=== PATIENT | female | born 1970 | race Caucasian/White ===

== ENCOUNTER → 2020-09-10 13:32 | Outpatient (BNVA) | payer OTHER, SELFPAY | PROVIDERS: Visit Provider Surgery ==

== ENCOUNTER 2020-11-30 16:31 | Outpatient (REF) | payer OTHER, SELFPAY ==
--- NOTE | ~2020-11-30 | MR_ITS ---
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 Lifetime risk 23.4%. COMPARISON: Correlation to mammogram of 03/10/2020 TECHNIQUE: Imaging was performed with a dedicated breast coil. Prior to the administration of contrast, bilateral axial T1 and bilateral axial T2 weighted sequences were obtained. After the uneventful administration of?9 mL of Gadavist, dynamic contrast-enhanced VIBRANT series through the breasts in the axial plane were performed. Subtracted images were performed and reviewed. A delayed sagittal sequence through both breasts was acquired. Additionally, CAD post-processing, including maximum intensity projections, 3-D reconstructions and kinetic analysis, were performed an independent workstation and reviewed by the interpreting radiologist is a portion of this exam. FINDINGS: There is scattered background density. There is mild background enhancement. LEFT BREAST: There are scattered foci of enhancement demonstrating subthreshold-type kinetics. There is a 0.6 cm enhancing mass in the 9 o'clock position, 4.3 cm from the nipple, demonstrating progressive and plateau-type kinetics. This finding is suspicious. (Axial subtracted image 70/126). There are no other areas of mass or non-mass enhancement suspicious of malignancy. There are 3 susceptibility artifacts in the 6 o'clock position of the breast from prior benign biopsies. There are no additional findings on T2-weighted imaging or kinetic curve analysis. RIGHT BREAST: There is non-mass enhancement in the 10 o'clock position of the breast, 7.8 cm from the nipple, measuring 1.1 cm in AP length. This demonstrates progressive and plateau-type kinetics and is considered suspicious. (Axial subtracted image 64/126). There are a few other scattered foci of enhancement demonstrating subthreshold-type kinetics. There is a focal area of enhancement in the skin along the inferior medial surface of the breast 6.2 cm from the nipple. This may represent an inflammatory skin process. (Axial subtracted image 99/126). There are no other areas of mass or non-mass enhancement suspicious of malignancy. There are no additional findings on T2-weighted imaging or kinetic curve analysis. There is no suspicious internal mammary chain. The right axillary lymph nodes are prominent. One in particular has a thickened cortex (axial subtracted image 32/126). Limited views of the chest and abdomen are unremarkable. MR/MR breast BI wo/w con IMPRESSION: 1. Left breast with 0.5 cm enhancing mass 9 o'clock position which is suspicious. 2. Right breast with non-mass enhancement 10 o'clock position which is suspicious. 3. Right breast with focal enhancement in the skin along the inferomedial surface. 4. Right axillary adenopathy. ASSESSMENT: LEFT BREAST: BI-RADS 4: Suspicious. RIGHT BREAST: BI-RADS 4: Suspicious. RECOMMENDATIONS: 1. MRI-guided biopsies for the left breast at 9 o'clock and right breast at 10 o'clock. These may have to be performed at 2 separate appointments due to the location of the lesions. 2. Clinical followup for the right breast skin lesion. 3. Focused ultrasound for the right breast adenopathy. It should be determined whether this is related to a recent COVID vaccination. If not, then biopsy should be considered. The findings were discussed with Charles JOHNSTON for Dr. Christine at 1:00 PM on 12/03/2020
== END 2020-11-30 16:32 | disposition home or self-care (01) ==
LOC: HO.MRI 16:31
PROVIDERS: Visit Provider Surgery
DX: R92.2 Inconclusive mammogram (principal); Z98.890 Other specified postprocedural states; Z80.3 Family history of malignant neoplasm of breast
CPT/HCPCS: 77049; A9585

== ENCOUNTER 2020-12-17 07:57 | Outpatient (REF) | payer OTHER, SELFPAY ==
--- NOTE | ~2020-12-17 | US_ITS ---
EXAMINATION: US DIAGNOSTIC ULTRASOUND BREAST, RIGHT CLINICAL INFORMATION: 50-year-old with high risk screening MRI showing mildly prominent right axillary nodes. Prior history right breast atypical ductal hyperplasia and intraductal papilloma. Family history breast cancer in mother. Patient has appointment for MR guided biopsy next week for an 11 mm non-mass enhancement right breast. COMPARISON: MRI breasts 11/30/2020, 05/19/2017, mammography 03/10/2020, 03/06/2019, 02/14/2018, 03/31/2017, 03/07/2016. TECHNIQUE: Ultrasound is targeted to the posterior upper outer right breast and right axilla. Grayscale imaging and color Doppler are performed without and with harmonics. FINDINGS: There are at least 4 right axillary nodes visualized, all with normal patricia architecture with abundant central fatty hilus and normal patricia color flow. The parenchymal cortex for each node measures 2-3 mm with no cystic changes or focal thickening or nodular contour. The nodes appear similar to prior breast imaging exams. No focal suspicious node to targeted for sampling. Results are discussed with the patient at time of visit. She has MR guided right breast biopsy appointment for early next week. Results are called to office (VICKIE Soto) for Dr. Christine on 12/17/2020. US/US breast RT limited IMPRESSION: No focal lymphadenopathy right axilla. No focal abnormality to target for ultrasound-guided biopsy. ASSESSMENT: BI-RADS 3: Probably Benign RECOMMENDATION: Continue with plan for right breast MR guided biopsy. This patient's information was entered into a reminder system with a target due date for their next mammogram.
== END 2020-12-17 07:58 | disposition home or self-care (01) ==
LOC: HO.MAMMO 07:57
PROVIDERS: Visit Provider Surgery
DX: R92.8 Other abnormal and inconclusive findings on diagnostic imaging of breast (principal); Z80.3 Family history of malignant neoplasm of breast
CPT/HCPCS: 76642

== ENCOUNTER 2020-12-22 07:28 | Outpatient (REF) | payer OTHER, SELFPAY ==
--- NOTE | ~2020-12-22 | MM_ITS ---
EXAMINATION: MR GUIDED VACUUM-ASSISTED CORE BIOPSY BREAST, RIGHT MM DIGITAL MAMMOGRAPHY POST BIOPSY, RIGHT CLINICAL INFORMATION: None mass enhancement 10:00 right breast on recent high risk screening breast MRI. Family history breast cancer, mother. Personal history right apex typical glandular formation 2017 and contralateral left intraductal papilloma 2017. TC score 23%. COMPARISON: MRI breasts 11/30/2020, digital breast tomosynthesis 03/10/2020, targeted right breast/axillary ultrasound 12/17/2020. TECHNIQUE/PROCEDURE: Informed consent was obtained from the patient after discussion of the benefits, risks, and alternatives to biopsy today. Patient appeared to understand. Gave opportunity for questions. Patient signed consent form. Biopsy is performed under MRI guidance using breast surface coil. Imaging is performed without and with use of 9 mL Gadavist gadolinium contrast. [employer] introducer localization system is used with grid. LESION: Non mass enhancement right upper outer quadrant. LOCAL ANESTHESIA: 6 mL 1% lidocaine; 10 mL 1% lidocaine with epinephrine. NEEDLE: [place]ov[place] 9-gauge vacuum assisted core biopsy device. APPROACH: Lateral medial. CORES: 12. CLIP: TriMark cylinder shaped. POSTPROCEDURE UNILATERAL DIGITAL MAMMOGRAM: Mammography is performed using digital mammography in CC and ML views. There are scattered areas of fibroglandular density (ACR BI-RADS breast composition Category b). The MR clip marker is in position. No gross hematoma. There are also 2 adjacent markers (open coil and butterfly shapes) in the upper outer quadrant from prior procedures. The patient tolerated the procedure well. No immediate complications. Home instructions reviewed with the patient. Final pathology results are pending. MM/MM diagnostic mammo unilat RT IMPRESSION: 1. Status post MRI guided vacuum-assisted core biopsy right breast with clip placement. 2. Final pathology results pending. An addendum report will be issued.
[2020-12-22] MEDS: Lidocaine HCl 1 % MPF 5 ML VIAL SUBCUT ×2 (09:25→09:26)
== END 2020-12-22 07:29 | disposition home or self-care (01) ==
LOC: HO.MRI 07:28
PROVIDERS: Visit Provider Surgery
DX: R92.8 Other abnormal and inconclusive findings on diagnostic imaging of breast (principal); Z80.3 Family history of malignant neoplasm of breast
CPT/HCPCS: 19085; 77065; 88305; 88360; A9585

== ENCOUNTER → 2021-01-14 15:59 | Outpatient (BNVA) | payer OTHER, SELFPAY | PROVIDERS: PCP Family Medicine; Visit Provider Surgery ==

== ENCOUNTER 2021-02-05 09:09 | Day surgery (SDC) | payer OTHER, SELFPAY ==
[2021-02-01 12:37] VITALS: BMI 35.9
--- NOTE | 2021-02-04 09:57 | HO.ANESPROP2 ---
Documented by User: Calli Israel 02/04/21 09:58 HPI - Anesthesia Eval Consult details Narrative: 50yo Right Breast Biopsy Needle Localization, Breast Lumpectomy PMFSH Active Problems Active Problems: All Active Problems (Updated 01/14/21 @ 16:24 by Berhane Christine MD) Abnormal MRI, breast (Acute) Flat epithelial atypia of right breast (Acute) Family history of breast cancer in first degree relative (Acute) Atypical ductal hyperplasia of breast (Acute) Past Medical History Medical History Atypical ductal hyperplasia of breast Family history of breast cancer in first degree relative Flat epithelial atypia of right breast Surgical History Surgical History History of lumpectomy of left breast Hx of dilation and curettage Social History Social History Patient Tobacco Use Status: Former Tobacco user Use of substances other than those prescribed or required for medical reasons: No Have you been hit, kicked, punched, or otherwise hurt by someone within the past year? If so, by whom?: No Are you DNR?: No Advance Directives Information Provided: No Meds Allergies Allergy/AdvReac Type Severity Reaction Status Date / Time Sulfa (Sulfonamide Allergy Unknown HIVES/DIFFICULTY Verified 01/14/21 16:04 Antibiotics) BREATHING Home Medications Medication Instructions Recorded Confirmed Last Taken Type No Known Home Meds 09/10/20 02/01/21 Unknown History Exam Exam Date and Time: February 04, 2021 0957 Height,Weight and Vital Signs: Height 5 ft 5 in Weight 97.9 kg Assessment and Plan Assessment Anesthesia Assessment: Chart Reviewed Documented by User: Ellen Fregoso 02/05/21 12:27 PMFSH Past Medical History Medical History Atypical ductal hyperplasia of breast Family history of breast cancer in first degree relative Flat epithelial atypia of right breast Surgical History Surgical History History of lumpectomy of left breast Hx of dilation and curettage Social History Social History Patient Tobacco Use Status: Former Tobacco user Use of substances other than those prescribed or required for medical reasons: No Have you been hit, kicked, punched, or otherwise hurt by someone within the past year? If so, by whom?: No Are you DNR?: No Advance Directives Information Provided: No Meds Allergies Allergy/AdvReac Type Severity Reaction Status Date / Time Sulfa (Sulfonamide Allergy Unknown HIVES/DIFFICULTY Verified 01/14/21 16:04 Antibiotics) BREATHING Home Medications Medication Instructions Recorded Confirmed Last Taken Type No Known Home Meds 09/10/20 02/01/21 Unknown History Exam Airway Mallampati Class: I TM Dist: >3cm Neck ROM: Full Loose/Missing/Broken Teeth: No Heart: RRR Lungs: CTA Assessment and Plan Assessment Anesthesia Assessment: Anesthesia Plan Discussed and Chart Reviewed Final Anesthetic Review NPO: Yes ASA Class: II Final Preanesthetic Review: Meds/Allgs Chart Reviewed, Consent Obtained/Reviewed and Anes Risks/Benef Reviewed Patient Risk: Low Procedure Risk: Low Anesthetic Plan Anesthetic Plan: GA Disposition: Standard PACU
[2021-02-05] VITALS (7 sets, daily range): BP systolic 118–130; BP diastolic 71–88; PULSE 61–75; RESP 14–18; TEMP 36.1–36.8; O2SAT 97–100
--- NOTE | ~2021-02-05 | MM_ITS ---
EXAMINATION: MM MAMMOGRAM GUIDED NEEDLE LOCALIZATION BREAST, RIGHT MM NEEDLE LOCALIZATION SPECIMEN FROM THE RIGHT BREAST CLINICAL INFORMATION: Atypical epithelial proliferation COMPARISON: December 22, 2020 and studies dating back to June 20, 2017 TECHNIQUE NEEDLE LOC: Proper informed consent is obtained from the patient after discussion of the procedure, potential risks and complications, and alternatives including declining the procedure today. Patient was given an opportunity for questions. The patient appeared to understand. The patient consented to the procedure and signed the consent form. GUIDANCE: Digital mammography. APPROACH: Lateral Medial. TARGET: MRI clip. ANESTHESIA: lidocaine 1%: 4 mL. LOCALIZATION MARKER: [employer]. A 7 cm long needle The skin is prepped and local anesthesia administered. The needle is positioned and position assessed with mammography. The wire is hooked into position. [place] needle protector placed. The patient tolerated the procedure well and had no immediate complication. TECHNIQUE SPECIMEN RADIOGRAPH: Imaging of the excised specimen is performed using digital mammography in 1 view. FINDINGS SPECIMEN RADIOGRAPH: The specimen shows the needle and hookwire are delivered intact. The targeted biopsy clip as well as 2 adjacent previously placed clips are present.. Results were called to Dr. Berhane Christine in the operating room at the time of imaging. MM/MM needle loc RT IMPRESSION: 1. Status post right breast needle localization with wire hooked into position. 2. Post operative specimen radiograph obtained.
[2021-02-05 09:29] LABS: UPreg QC Valid YES; Urine Pregnancy NEGATIVE (NEGATIVE)
[2021-02-05] MEDS: Lactated Ringers 1,000 ML 100 ML IVCONT (10:08)
--- NOTE | 2021-02-05 10:22 | MHC.SHP ---
Pre-Procedural Eval Section A Date of Service: 02/05/21 Section B Chief Complaint: Flat epithelial atypia of right breast Allergies: Allergies Allergy/AdvReac Type Severity Reaction Status Date / Time Sulfa (Sulfonamide Allergy Unknown HIVES/DIFFICULTY Verified 01/14/21 16:04 Antibiotics) BREATHING Plan I have reviewed the history and physical and performed a pertinent physical examination on my patient. No changes have occurred unless specified.
--- NOTE | 2021-02-05 12:26 | P.OP_ITS ---
Operative Note Operative Note Date of Service: 02/05/21 Narrative: Preop diagnosis: Atypical epithelial proliferation, right breast Postop diagnosis: The same Procedure: lumpectomy, right breast with needle localization Surgeon: Berhane Christine MD Enrollment Management Manager: none The patient is a 50 year female who had undergone ultrasound biopsy because of an abnormal mammogram of the right breast. This turned out to be and atypical epithelial proliferation with borderline DCIS features. She was therefore recommended to undergo lumpectomy. The technique of right breast lumpectomy with needle localization. She was aware of the risks, benefits, and alternatives. She underwent needle localization at the mammogram suite. I had reviewed her needle localization imaging with the radiologist, Dr. Branham .She was brought to the operating room and placed supine the table under general anesthesia via laryngeal mask airway. The right breast was prepped and draped in the usual sterile fashion. A surgical time-out was done. The patient received cefazolin 2 g IV preoperatively. The needle was noted to be entering the right breast from lateral to medial. I infiltrated the planned line of incision with lidocaine 1%. I made the incision tangential to the localizing wire using ablade 15 and this was carried down through the full-thickness of skin in subcutaneous fat with electrocautery. I then proceeded to dissect in divide through the breast tissue surrounding the needle circumferentially using Becerra scissors with care being taken so as to include a generous tissue of breast surrounding this needle. We palpated for the needle-tip as we advanced with the section to make sure that we were including the entire needle along with generous margins of breast tissue surrounding this. At some point, while dissecting posteriorly, encountered to the vessels that were divided. The clamps were applied although there was note of vigorous bleeding from these 2 small arterial vessels. We therefore had to quickly complete the dissection posteriorly using the Becerra scissors to deliver the specimen. I placed a packing into the excision site for better hemostasis. I marked the lateral aspect of the specimen with long sutures and the superior aspect with short sutures. This was sent for immediate re-ray and immediate gross exam. I then removed the lap packing to clearly visualize two bleeding vessels. These were both clamped and cauterized. I observed for hemostasis. Once hemostasis was ensured I proceeded to then copiously irrigate. I closed the deep breast tissue with multiple interrupted Dexon 3-0 sutures. Skin closure was achieved with Dexon 4-0 subcuticular running stitch. I infiltrated the area with Marcaine 0.5% for postop analgesia. Steri-Strips and thick dressings were then applied. The procedure was then completed. The patient tolerated the procedure well. There were no immediate complications noted. Initial and final counts of sponges and instruments were correct. Estimated blood loss was about 100 cc. The patient was extubated without difficulty in the operating room and transferred to the recovery room with stable vital signs. At the end of the procedure, I received a call from the radiologist stating that re-ray of the specimen showed that the marking clip was with the specimen and in good location. The pathologist had also called me after this to state that the margins appeared to be unremarkable and that the biopsy site was seen.
== END 2021-02-05 13:59 | disposition home or self-care (01) ==
PROVIDERS: Nurse Practitioner; PCP Family Medicine; Visit Provider Surgery
PROC: (CPT 19301; principal; 2021-02-05 11:00)
PROC: (CPT 19301; 2021-02-05 11:00)
DX: N60.81 Other benign mammary dysplasias of right breast (principal); Z80.3 Family history of malignant neoplasm of breast; N64.89 Other specified disorders of breast; Z88.2 Allergy status to sulfonamides; Z87.891 Personal history of nicotine dependence
CPT/HCPCS: 19301; 19281; 81025; 88307; 88329; A4648; J0690; J1100; J2250; J2405; J3010

== ENCOUNTER → 2021-02-12 14:52 | Outpatient (BNVA) | payer OTHER, SELFPAY | PROVIDERS: PCP Family Medicine; Visit Provider Surgery ==